=== PATIENT | male | born 1970 | race African-American/Black ===

== ENCOUNTER 2017-08-14 13:29 | Inpatient (IN) | payer MEDICAID ==
[2017-08-14] MEDS ORDERED: ALBUTEROL 3 ML DEYVIAL IH ONE (13:47)
[2017-08-14] MEDS ORDERED: NS 1,000 ML IV ONE ×2 (13:47→16:54)
--- NOTE | 2017-08-14 13:47 | EDPHY ---
H & P Time Seen by Provider: 08/14/17 13:40 HPI/ROS: CHIEF COMPLAINT: Short of breath HISTORY OF PRESENT ILLNESS: 46-year-old man says he is short of breath for the last 24 hr. He says he has some right-sided chest pain which is sharp and worse when he has a cough. Symptoms moderate arrives by EMS. Not associated with fever or chills or sputum production. No leg swelling. No previous history of coronary disease or lung disease and no fever. REVIEW OF SYSTEMS: Eye: no change in vision ENT: no sore throat Cardiac: no chest pain or syncope Pulmonary: HPI Abdomen: no vomiting, diarrhea, abdominal pain Musculoskeletal: no back pain Skin: no rash Neuro: no headache Constitutional: no fever : no urinary symptoms A comprehensive 10 point review of systems is otherwise negative aside from elements mentioned in the history of present illness. 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 Eyes: No scleral icterus. ENT, Mouth: Normal mucous membranes. Respiratory: Occasional expiratory wheezing but speaks in full sentences. Cardiovascular: Regular rate and rhythm. Tachycardic Gastrointestinal: Abdomen is soft and non tender. Neurological: Alert, face symmetric, normal motor and sensory in extremities. Skin: Warm and dry, no rashes. No urticaria. Musculoskeletal: No peripheral edema. No calf tenderness. Psychiatric: Not agitated. Emergency Department course/MDM: Patient is afebrile but noted to be tachycardic at a heart rate 127. EKG, chest x-ray, labs to include D-dimer with coughing up blood, and tachycardia. Albuterol neb. 1421: Sepsis screening with diagnosis of pneumonia, admission for tachycardia and homelessness with severely elevated white blood cell count of over 30,000. D-dimer 3.4, CT angiography ordered. 30 mL/kilos IV fluid bolus ordered as well. 1435: Results and plan discussed with patient, including CT angio discussed and consented. 1500: severe sepsis with lactate 2.3. Ceftriaxone 1 g IV and azithromycin 500 mg IV for presumed community-acquired pneumonia. CT angiography personally reviewed by myself and interpreted does not show pulmonary embolism but large right sided pneumonia; Henry agrees at 1505. Smoking Status: Never smoked Constitutional: Initial Vital Signs Temperature (C) 37.2 C 08/14/17 13:30 Heart Rate 123 H 08/14/17 13:30 Respiratory Rate 20 08/14/17 13:30 Blood Pressure 147/109 H 08/14/17 13:30 O2 Sat (%) 93 08/14/17 13:30 O2 Delivery Mode Nasal Cannula O2 (L/minute) 2 Allergies/Adverse Reactions: No Known Allergies Allergy (Unverified 03/15/16 19:46) Home Medications: Medication Instructions Recorded NK [No Known Home Meds] 03/15/16 Medical Decision Making - Diagnostics EKG Interpretation: 12-lead EKG interpreted by me; official reading is in trace master. My interpretation is sinus tachycardia rate 120 without ischemic changes. Imaging Results: Imaging Impressions Chest X-Ray 08/14/17 13:47 Impression: 1. Right lower lobe consolidation/pneumonia. Chest/Thorax CTA 08/14/17 14:27 Impression: 1. No evidence of thrombopulmonary embolic disease. 2. Dense right lower lobe pneumonia. 3. No evidence of pulmonary abscess or empyema. Findings discussed with Emergency Department physician, Peter Wilson on 08/14/2017 , 15:00. X-ray personally interpreted shows right lower lung pneumonia at 2:21 p.m. Imaging: I viewed and interpreted images myself Differential Diagnosis: Differential diagnosis considered for shortness of breath including but not limited to pulmonary infectious process, COPD, asthma, pulmonary embolus and congestive heart failure. Consult/Admit Bed Type: [place] [id number] Critical Care Time: Critical care time spent by me, Dr. Wilson, exclusively with the care of this patient was 40 minutes, exclusive of PA or MARINE DIESEL TECHNICIAN time and exclusive of separate procedures. The organ system at risk was pulmonary and I ordered IV fluid resuscitation, multiple diagnostics, multiple antibiotics, discussion with hospitalist and supplemental oxygen to stabilize the patient and prevent worsening of the patient's condition. - Data Points Laboratory Results: Laboratory Results 08/14/17 13:30 08/14/17 13:30 08/14/17 08/14/17 08/14/17 13:30 13:30 13:30 WBC 36.42 10^3/uL H 10^3/uL (3.80-9.50) RBC 5.48 10^6/uL 10^6/uL (4.40-6.38) Hgb 16.0 g/dL g/dL (13.7-17.5) Hct 46.9 % % (40.0-51.0) MCV 85.6 fL fL (81.5-99.8) MCH 29.2 pg pg (27.9-34.1) MCHC 34.1 g/dL g/dL (32.4-36.7) RDW 14.2 % % (11.5-15.2) Plt Count 335 10^3/uL 10^3/uL (150-400) MPV 8.8 fL fL (8.7-11.7) Neut % (Auto) Not Reported Lymph % (Auto) Not Reported Atlantic % (Auto) Not Reported Eos % (Auto) Not Reported Baso % (Auto) Not Reported Nucleat RBC Rel Count 0.0 % % (0.0-0.2) Absolute Neuts (auto) Not Reported Absolute Lymphs (auto) Not Reported Absolute Monos (auto) Not Reported Absolute Eos (auto) Not Reported Absolute Basos (auto) Not Reported Absolute Nucleated RBC 0.00 10^3/uL 10^3/uL (0-0.01) Immature Gran % Not Reported Seg Neutrophils % 65 % % Band Neutrophils % 22 % % Lymphocytes % 7 % % Monocytes % 4 % % Metamyelocytes % 3 % % Immature Gran # Not Reported Absolute Seg Neuts 23.67 10^/uL H 10^/uL (1.70-6.50) Absolute Band Neuts 8.01 10^3/uL H 10^3/uL (0.00-0.70) Absolute Lymphocytes 2.55 10^3/uL 10^3/uL (1.00-3.00) Absolute Monocytes 1.46 10^3/uL H 10^3/uL (0.30-0.80) Absolute Metamyelocyte 1.09 10^3/mL H 10^3/mL (0.00-0.00) Dohle Bodies PRESENT H Platelet Estimate ADEQUATE (ADEQ) Smear Review By Cherise ARREDONDO MD D-Dimer 3.43 ug/mLFEU H ug/mLFEU (0.00-0.50) VBG Lactic Acid Sodium 137 mEq/L mEq/L (135-145) Potassium 4.3 mEq/L mEq/L (3.5-5.2) Chloride 95 mEq/L L mEq/L (97-110) Carbon Dioxide 27 mEq/l mEq/l (22-31) Anion Gap 15 mEq/L mEq/L (8-16) BUN 19 mg/dL mg/dL (7-23) Creatinine 1.4 mg/dL H mg/dL (0.7-1.3) Estimated GFR 54 Glucose 82 mg/dL mg/dL (70-100) Calcium 9.4 mg/dL mg/dL (8.5-10.4) 08/14/17 13:06 WBC RBC Hgb Hct MCV MCH MCHC RDW Plt Count MPV Neut % (Auto) Lymph % (Auto) Atlantic % (Auto) Eos % (Auto) Baso % (Auto) Nucleat RBC Rel Count Absolute Neuts (auto) Absolute Lymphs (auto) Absolute Monos (auto) Absolute Eos (auto) Absolute Basos (auto) Absolute Nucleated RBC Immature Gran % Seg Neutrophils % Band Neutrophils % Lymphocytes % Monocytes % Metamyelocytes % Immature Gran # Absolute Seg Neuts Absolute Band Neuts Absolute Lymphocytes Absolute Monocytes Absolute Metamyelocyte Dohle Bodies Platelet Estimate Smear Review By D-Dimer VBG Lactic Acid 2.2 mmol/L H mmol/L (0.7-2.1) Sodium Potassium Chloride Carbon Dioxide Anion Gap BUN Creatinine Estimated GFR Glucose Calcium Medications Given: Sodium Chloride (Ns) 1,000 mls @ 200 mls/hr IV CONT LIT Stop: 02/10/18 14:59 Last Admin: 08/14/17 15:17 Dose: 1,000 mls Discontinued Medications Albuterol (Proventil Neb) 3 ml IH EDNOW ONE Stop: 08/14/17 13:48 Last Admin: 08/14/17 13:54 Dose: 3 ml Sodium Chloride (Ns) 1,000 mls @ 0 mls/hr IV ONCE ONE; Wide Open PRN Reason: Protocol Stop: 08/14/17 13:48 Last Admin: 08/14/17 13:54 Dose: 1,000 mls Azithromycin 500 mg/ Dextrose 255 mls @ 255 mls/hr IV EDNOW ONE PRN Reason: Protocol Stop: 08/14/17 15:27 Last Admin: 08/14/17 16:58 Dose: Not Given Ceftriaxone Sodium 1 gm/ (Sterile Water) 10 mls @ 150 mls/hr IV EDNOW ONE PRN Reason: Protocol Stop: 08/14/17 14:31 Last Admin: 08/14/17 15:43 Dose: Not Given Sodium Chloride (Ns) 3,300 mls @ 6,600 mls/hr 30 ml/kg infuse over 30 min ( 3300 ml) IV EDNOW ONE PRN Reason: Protocol Stop: 08/14/17 14:58 Last Admin: 08/14/17 15:18 Dose: 3,300 mls Azithromycin 500 mg/ Sodium (Chloride) 255 mls @ 255 mls/hr IV EDNOW ONE PRN Reason: Protocol Stop: 08/14/17 16:29 Last Admin: 08/14/17 16:20 Dose: 255 mls Ceftriaxone Sodium/Dextrose (Rocephin 1 Gm (Premix)) 50 mls @ 100 mls/hr IV EDNOW LIT PRN Reason: Protocol Stop: 09/13/17 15:44 Last Admin: 08/14/17 15:41 Dose: 50 mls Departure - Departure Disposition: [facility] Inpatient Acute Clinical Impression: Pneumonia Qualifiers: Pneumonia type: due to unspecified organism Laterality: right Lung location: lower lobe of lung Qualified Code(s): J18.1 - Lobar pneumonia, unspecified organism Condition: Serious
[2017-08-14 13:57] LABS: PLATELET COUNT 335 10^3/uL (150-400)
--- NOTE | 2017-08-14 14:01 | CPEKG ---
Heart Rate: 120 RR Interval: 500 P-R Interval: 148 QRSD Interval: 82 QT Interval: 320 QTC Interval: 453 P Charleston: 16 QRS Charleston: -8 T Wave Charleston: 53 EKG Severity - OTHERWISE NORMAL ECG - EKG Impression: SINUS TACHYCARDIA Electronically Signed By: Peter Wilson 14-Aug-2017 14:05:02
[2017-08-14] MEDS ORDERED: AZITHROMYCIN IV 500 MG in D5W 250 ML IV ONE (14:28)
[2017-08-14] MEDS ORDERED: cefTRIAXone 1 GM in STERILE WATER INJ 10 ML IV ONE (14:28)
[2017-08-14] MEDS ORDERED: NS 3,300 ML IV ONE (14:29)
[2017-08-14] MEDS ORDERED: IOPAMIDOL (ISOVUE 370) 100 ML BTL IV ONE (14:31)
[2017-08-14] MEDS ORDERED: ONDANSETRON DISINTEGRATING 4 MG TAB PO PRN (14:47)
[2017-08-14] MEDS ORDERED: ACETAMINOPHEN 325 MG TAB PO PRN (14:47)
[2017-08-14] MEDS ORDERED: ONDANSETRON 4 MG/2 ML VIAL IVP PRN (14:47)
[2017-08-14] MEDS ORDERED: ALBUTEROL 3 ML DEYVIAL IH PRN (14:47)
[2017-08-14] MEDS ORDERED: AZITHROMYCIN IV 500 MG in NS 250 ML IV ONE ×2 (15:15→15:30)
[2017-08-14] MEDS: NS 1,000 ML IV SCH ×2 (15:17→22:50)
--- NOTE | 2017-08-14 15:38 | PDGENHP ---
History and Physical History and Physical: CC: Shortness of breath and weakness HISTORY: This patient who has history of smoking but no history of lung disease comes into the ER complaining of weakness and shortness of breath. He is homeless. He does not have any known history of asthma or COPD. He does have some cough, some mild nausea without vomiting, some headache and some myalgias. There is no chest pain, no leg pain or swelling, no abdominal pain, no diarrhea, no joint or skin symptoms ROS: A comprehensive 10 system review revealed no other significant findings PAST MEDICAL HISTORY: Very healthy overall FAMILY MEDICAL HISTORY: Does not know his family medical history SOCIAL HISTORY: Homeless No tobacco or alcohol MEDICATIONS: No medicines in the outpatient setting PHYSICAL EXAMINATION: Vital Signs: Significant tachycardia and tachypnea or present, highest temperature so far is 37.5, blood pressure is good Strategic Planning Consultant: Sinus tachycardia Examination: General: alert, oriented, good mentation, looks fairly ill and weak Skin: warm, dry, good color, no rash HEENT: normal Neck: no mass or jvd Resps: relaxed Lungs: clear breath sounds Heart: regular, no murmur Abdomen: soft, nondistended, nontender, +BS, no mass Upper Extremities: normal Lower Extremities: no edema, warm No Bleeding or bruising Neurologic: normal speech/language, 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, no focal weakness IV site: looks normal LABORATORY DATA: Very high white blood cell count 43642 Lactic acidosis is present within anion gap Acute renal failure creatinine 1.4 D-dimer high 3.5 RADIOLOGY STUDIES: Chest x-ray with what appears like a right lower lobe pneumonia on my review of images CT scan of the chest was also done I read in reviewed the images from that in the ER, he has a dense right lower lobe pneumonia but no PE 12 LEAD EKG: ASSESSMENT: -acute community-acquired pneumonia with typical right lower lobe infiltrate -acute early sepsis with marked tachycardia, lactic acidosis, leukocytosis -acute renal failure due to above -nausea headache and respiratory symptoms raising question of flu or other viral illness -homelessness PLANS: Blood cultures have been done Aggressive fluid resuscitation and will need to recheck vitals and lactic acid levels Antibiotics have been started in the ER for pneumonia will continue Await respiratory pathogen panel Follow renal function closely Social work consult I have reviewed the patient's case in detail with Dr. Peter Wilson I have reviewed the patient's past medical records as part of this assessment, including
--- NOTE | 2017-08-14 15:45 | ASMTLACE ---
ESTEVAN Acuity / Level of Answers: Yes Care: Did the patient have an inpatient admission? # of Emergency department Answers: 1-2 visits in the last 6 months Social determinants Answers: Homelessness (street, fdc) Score: 7 Date Signed: 08/14/2017 03:44 PM Electronically Signed By:Kim Houston RN
--- NOTE | 2017-08-14 16:39 | PDMN ---
Medical Necessity Medical necessity: Pt meets IP criteria per MD; est los >2 mn for eval/tx of acute community acquired pneumonia w/RLL infiltrate, acute early sepsis, acute renal failure, nausea & headache; admit for further workup/close monitoring, aggressive IVFs, IV abx; hx homelessness; per H&P & order 08/14/17
[2017-08-14] MEDS: IPRATROPIUM/ALBUTEROL 3 ML DEYVIAL IH SCH ×2 (18:28→22:42)
[2017-08-14] MEDS ORDERED: NS BOLUS 1000 ML (Wide open) IV ONE (20:30)
[2017-08-15] MEDS: NS 1,000 ML IV SCH (04:24)
[2017-08-15 05:11] LABS: PLATELET COUNT 265 10^3/uL (150-400)
[2017-08-15] MEDS: IPRATROPIUM/ALBUTEROL 3 ML DEYVIAL IH SCH ×4 (06:03→21:56)
[2017-08-15] MEDS: ENOXAPARIN 40 MG/0.4 ML SYR SC SCH (08:01)
--- NOTE | 2017-08-15 08:37 | HOSPPROG ---
Hospitalist Progress Note Assessment/Plan: Patient is a 46-year-old male with history smoking. He comes to the emergency room with complaints of weakness and shortness of breath. In addition he is homeless. He is pot positive cough, mild nausea without vomiting, headache and some myalgias. Today is my 1st encounter with the patient. Chart reviewed. * bacteremia, positive strep pneumonia growing in 1 blood culture thus far -on ceftriaxone, azithromycin added -will ask Infectious Disease to get involved * acute community-acquired pneumonia with a right lower lobe infiltrate, also positive for coronavirus -on abx * sepsis due to the above -ongoing leukocytosis, had tachycardia and lactic acidosis * acute renal failure -resolved * homelessness * nicotine dependence -patch, cessation recommended *Plan: appreciate Dr Belle seeing Quinton, he will need another midnight stay due to the above; will get repeat labs in a.m. Subjective: Quinton is tired, has no other complaints. Objective: Vital Signs Temp Pulse Resp BP Pulse Ox 36.4 C 97 20 176/112 H 98 08/15/17 07:42 08/15/17 07:42 08/15/17 07:42 08/15/17 07:42 08/15/17 07:42 Microbiology 08/14/17 14:30 Blood Panel (PCR) - Final Blood Streptococcus Pneumoniae 08/14/17 14:30 Respiratory Panel (PCR) - Final Nasal, Sinus - Swab Coronavirus Hku1 Detected Laboratory Results 08/15/17 04:54 08/15/17 04:54 08/14/17 08/15/17 08/16/17 05:59 05:59 05:59 Intake Total 4835 Output Total 1400 Balance 3435 - Physical Exam Constitutional: no apparent distress, appears nourished Eyes: PERRL Ears, Nose, Mouth, Throat: hearing normal Cardiovascular: regular rate and rhythym Respiratory: no respiratory distress, reduced air movement Gastrointestinal: normoactive bowel sounds Skin: warm, normal color Musculoskeletal: full muscle strength Neurologic: AAOx3 Psychiatric: interacting appropriately, poor insight ICD10 Worksheet Patient Problems: Problems Problem Status Onset Pneumonia Acute
[2017-08-15] MEDS ORDERED: AZITHROMYCIN IV 500 MG in NS 250 ML IV SCH (09:00)
[2017-08-15] MEDS: hydrALAZINE 10 MG TAB PO PRN (12:11)
--- NOTE | 2017-08-15 15:04 | GCON ---
[f rep st] CONSULTATION INPATIENT INFECTIOUS DISEASE CONSULTATION. REFERRING PHYSICIAN: Pooja Pierson NP REASON FOR REFERRAL: Streptococcus pneumoniae, bacteremia and right lower lobe. Pneumonia. HISTORY OF PRESENT ILLNESS: Patient is a 46-year-old, homeless male, who was seen and admitted from the emergency department on 08/14/2017. Patient presented with complaints of shortness of breath and weakness. This has been increasing in problem for the last 24 hours prior to admission. He also no trudy some right-sided chest pain which is worse with deep inspiration and admitted to a cough. The magda roque had a chest CT done which revealed a dense consolidation in the right lower lobe. Blood cultur es initially obtained on 08/14 rapidly grew Streptococcus pneumoniae. The patient also had a respira tory panel PCR which identified coronavirus HKU1. The patient is currently resting comfortably in [facility] bed. He states he still has occasional bouts of coughing. He sometimes coughs some brigh t red blood. Says his fevers and chills have improved. Still has some right-sided chest pain. Curr ently, he is being managed with ceftriaxone and azithromycin. PAST MEDICAL HISTORY: Essentially negative. PAST SURGICAL HISTORY: Hernia repair as a young child. ANTIBIOTICS: 1. Ceftriaxone. 2. Azithromycin. ALLERGIES: Patient has no known medical allergies. SOCIAL HISTORY: Patient is [place]. He moved back out to [place] a number of years ag o. He is homeless although has a network of friends some of whom allow him to stay with them at vari ous points. Occasional alcohol use. Occasional marijuana and methamphetamine use. FAMILY HISTORY: Reviewed, but noncontributory. REVIEW OF SYSTEMS: Other than that detailed above in his present illness, a comprehensive 10-system review is negative. PHYSICAL EXAMINATION: VITAL SIGNS: Temperature maximum is 37.5, Temperature current is 36.9, Heart rate is 106, respiratory rate is 20, blood pressure is 176/116. GENERAL: The patient is a well-form ed, well-nourished, middle-aged male in no acute distress. He is mildly toxic appearing. He is aler t and oriented x3. He is pleasant in demeanor. HEENT: Normocephalic for age. Atraumatic. No scle ral icterus. No oral lesion. No drainage from the nares. Eye Lids and conjunctivae are within hitesh l limits. Pupils are equal and round bilaterally. NECK: Supple. No meningismus. LUNGS: Patient has a clear lung on the left side. Right side with crackles and decreased breath sounds in the right lower lobe. Reasonable effort. HEART: Tachycardic but regular rhythm. No murmur, rub, or gallop n oted. No significant peripheral edema. ABDOMEN: Soft, nontender. No masses. SKIN: Warm and dry to the touch. No rashes or lesions seen. MUSCULOSKELETAL: No muscle tenderness is noted. No joint large effusion or arthritis is seen. NEURO: Cranial nerves 2-12 seem intact. Peripheral sensation seems intact in extremities. LABORATORY DATA: The patient has a CBC dated 08/15/2017 shows a white blood cell count of 28.8, hemo globin of 13.2, hematocrit 39.9, and a platelet count of 265, differential shows 65% mature segmented neutrophils with 28% band forms. Serum chemistries on 08/15 show sodium 138, potassium 3.9, chlorid e 109, bicarbonate of 22, BUN of 13, creatinine 0.9. Total bilirubin is 2.5, unconjugated is 1.6, T is 22, ALT is 37. MICROBIOLOGIC DATA: Patient has blood cultures dated 08/14/2017 which are growing Streptococcus pneu moniae. Respiratory viral panel PCR from 08/14/2017 shows coronavirus HKU1. ASSESSMENT: Respiratory viral infection with coronavirus complicated by secondary bacterial Streptoc occus pneumoniae pneumonia and bacteremia. The patient is being managed with ceftriaxone and azithro mycin. We can probably stop the azithromycin and just use ceftriaxone monotherapy. The patient is b acteremic with gram positives and therefore probably needs a followup blood culture. Will order this for tomorrow. Plan to continue to treat the patient with ceftriaxone and monitor clinical improvemen t. PLAN: 1. Continue ceftriaxone. 2. Stop azithromycin. 3. Follow up blood cultures tomorrow. 4. Follow clinical course. /[id number]/MODL
[2017-08-15] MEDS: cefTRIAXone 2 GM in STERILE WATER INJ 20 ML IV SCH (15:13)
[2017-08-16 05:35] LABS: PLATELET COUNT 311 10^3/uL (150-400)
[2017-08-16] MEDS: IPRATROPIUM/ALBUTEROL 3 ML DEYVIAL IH SCH ×4 (06:03→21:53)
[2017-08-16] MEDS: ENOXAPARIN 40 MG/0.4 ML SYR SC SCH (08:09)
--- NOTE | 2017-08-16 10:22 | PCMIDPN ---
Assessment/Plan: 1. Invasive pneumococcal disease with dense right lower lobe pneumonia and concomitant bacteremia: Sensitivities on the pneumococcus should be back by tomorrow; hopefully he can be discharged on oral quinolone moving forward. He is improving on ceftriaxone. Will continue this for now. Repeat blood cultures are pending. Patient has agreed to an HIV antibody test. He states that his most recent test was 6 months ago while in the [facility], which was negative. He adamantly denies tobacco use. 2. Miscellaneous: Patient adamantly refuses a flu vaccine. Is agreeable to the Prevnar 13 prior to discharge. Subjective: Feeling better every day. Minimal cough. No shaking chills. Objective: Ceftriaxone 2 g IV daily day 2 T-max 37.3 degrees 96% on room air Vital Signs Temp Pulse Resp BP Pulse Ox 36.8 C 91 16 176/100 H 94 08/16/17 08:11 08/16/17 08:11 08/16/17 08:11 08/16/17 08:11 08/16/17 08:11 Microbiology 08/14/17 14:30 Blood Panel (PCR) - Final Blood Streptococcus Pneumoniae Laboratory Results 08/16/17 05:20 08/16/17 05:20 08/15/17 08/16/17 08/17/17 05:59 05:59 05:59 Intake Total 4835 Output Total 1400 1900 Balance 3435 -1900 Repeat blood cultures are pending Previous blood cultures with pneumococcus Respiratory pathogen PCR panel positive for burris virus - Physical Exam General Appearance: alert, no apparent distress EENT: pharynx normal, No thrush Respiratory: other (Crackles right lung base. Otherwise fairly clear.) Cardiac/Chest: regular rate, rhythm Abdomen: non-tender, soft Skin: No rash ICD10 Worksheet Patient Problems: Problems Problem Status Onset Pneumonia Acute
[2017-08-16] MEDS: hydrALAZINE 10 MG TAB PO PRN (11:10)
--- NOTE | 2017-08-16 13:10 | HOSPPROG ---
Hospitalist Progress Note Assessment/Plan: Patient is a 46-year-old male with history smoking. He comes to the emergency room with complaints of weakness and shortness of breath. In addition he is homeless. He has a cough, mild nausea without vomiting, headache and some myalgias. * bacteremia, positive strep pneumonia -on ceftriaxone - * acute community-acquired pneumonia/ dense pna with a right lower lobe infiltrate, also positive for coronavirus -on abx * sepsis due to the above -ongoing leukocytosis * acute renal failure -resolved *htn -uncontrolled -will order scheduled medication but doubtful he will continue with once dc *elevated d dimer -CTA negative for PE * homelessness * nicotine dependence -patch, cessation recommended *Plan: Reviewed his care w Dr Chaudhry, checking for HIV, cont supportive care. Case management has arranged an appointment for him at [facility] this next for f/u. Subjective: Quinton is feeling better today. Appetite is good. Objective: Vital Signs Temp Pulse Resp BP Pulse Ox 36.8 C 88 15 170/108 H 95 08/16/17 11:26 08/16/17 11:51 08/16/17 11:51 08/16/17 11:26 08/16/17 11:51 Microbiology 08/14/17 14:30 Blood Panel (PCR) - Final Blood Streptococcus Pneumoniae Laboratory Results 08/16/17 05:20 08/16/17 05:20 08/15/17 08/16/17 08/17/17 05:59 05:59 05:59 Intake Total 4835 Output Total 1400 1900 Balance 3435 -1900 - Physical Exam Constitutional: no apparent distress Eyes: PERRL Ears, Nose, Mouth, Throat: hearing normal Cardiovascular: regular rate and rhythym Respiratory: no respiratory distress, other (crackles in r base) Gastrointestinal: normoactive bowel sounds Skin: warm Musculoskeletal: full muscle strength Neurologic: AAOx3 Psychiatric: interacting appropriately ICD10 Worksheet Patient Problems: Problems Problem Status Onset Pneumonia Acute
[2017-08-16] MEDS: cefTRIAXone 2 GM in STERILE WATER INJ 20 ML IV SCH (15:12)
[2017-08-17] MEDS: IPRATROPIUM/ALBUTEROL 3 ML DEYVIAL IH SCH ×4 (06:14→21:18)
[2017-08-17] MEDS ORDERED: PNEUMOC 13-VAL CONJ-DIP CRM/PF 0.5 ML SYR IM ONE (08:29)
--- NOTE | 2017-08-17 08:29 | PCMIDPN ---
Assessment/Plan: 1. Invasive pneumococcal disease with dense right lower lobe pneumonia and concomitant bacteremia: Pneumococcus is susceptible to the quinolones; will change him to oral levofloxacin today. Stop date for antibiotics, if blood cultures from August 16 remain sterile is August 30. 2. Miscellaneous: Patient adamantly refuses a flu vaccine. Prevnar 13 today. Objective: Ceftriaxone 2 g IV daily day 3 T-max 37.2 degrees Vital Signs Temp Pulse Resp BP Pulse Ox 36.9 C 88 16 158/93 H 97 08/17/17 07:48 08/17/17 07:48 08/17/17 07:48 08/17/17 07:48 08/17/17 07:48 Microbiology 08/14/17 15:15 Blood Culture - Final Blood Streptococcus Pneumoniae 08/14/17 14:30 Blood Culture - Final Blood Streptococcus Pneumoniae Blood Panel (PCR) - Final Streptococcus Pneumoniae Laboratory Results 08/16/17 05:20 08/16/17 05:20 08/16/17 08/17/17 08/18/17 05:59 05:59 05:59 Intake Total 450 Output Total 1900 700 Balance -1900 -250 Blood cultures August 16 pending Blood cultures August 14 pneumococcus sensitive to the quinolones HIV antibody test pending - Physical Exam General Appearance: alert, no apparent distress EENT: pharynx normal, No thrush Respiratory: other (Poor inspiratory effort, but fairly clear.) Cardiac/Chest: regular rate, rhythm Abdomen: non-tender, soft Skin: No rash ICD10 Worksheet Patient Problems: Problems Problem Status Onset Pneumonia Acute
[2017-08-17] MEDS: ENOXAPARIN 40 MG/0.4 ML SYR SC SCH (08:37)
--- NOTE | 2017-08-17 09:38 | HOSPPROG ---
Hospitalist Progress Note Assessment/Plan: Patient is a 46-year-old male with history smoking. He comes to the emergency room with complaints of weakness and shortness of breath. In addition he is homeless. He has a cough, mild nausea without vomiting, headache and some myalgias. * bacteremia, positive strep pneumonia -on ceftriaxone -2nd set of blood cx shows no growth -dc home on Levaquin till August 30 / will dc tomorrow * acute community-acquired pneumonia/ dense pna with a right lower lobe infiltrate, also positive for coronavirus -on abx * sepsis due to the above -ongoing leukocytosis * acute renal failure -resolved *htn -better today -will order scheduled medication but doubtful he will continue with once dc *elevated d dimer -CTA negative for PE * homelessness * nicotine dependence -patch, cessation recommended *Plan: Reviewed his care w Dr Chaudhry, he can dc tomorrow on Levaquin. May need his prescription filled prior. Subjective: Quinton still is short of breath, but feeling better. Objective: Vital Signs Temp Pulse Resp BP Pulse Ox 36.9 C 88 16 158/93 H 97 08/17/17 07:48 08/17/17 07:48 08/17/17 07:48 08/17/17 07:48 08/17/17 07:48 Microbiology 08/14/17 15:15 Blood Culture - Final Blood Streptococcus Pneumoniae 08/14/17 14:30 Blood Culture - Final Blood Streptococcus Pneumoniae Blood Panel (PCR) - Final Streptococcus Pneumoniae Laboratory Results 08/16/17 05:20 08/16/17 05:20 08/16/17 08/17/17 08/18/17 05:59 05:59 05:59 Intake Total 450 Output Total 1900 700 Balance -1900 -250 - Physical Exam Constitutional: no apparent distress, appears nourished, not in pain Eyes: PERRL Ears, Nose, Mouth, Throat: hearing normal Cardiovascular: regular rate and rhythym Respiratory: no respiratory distress, reduced air movement Skin: warm Musculoskeletal: full muscle strength Neurologic: AAOx3 Psychiatric: interacting appropriately ICD10 Worksheet Patient Problems: Problems Problem Status Onset Pneumonia Acute
--- NOTE | 2017-08-17 15:30 | ASMTCMCOM ---
CM Note CM Note Notes: Met with patient to review dc plan of care. He will require oral antibiotics upon dc, ? MAP . He is aware of follow up appointment set up for [facility] Friday but feels the weather will prevent him form be able to do this. CM can call [facility] in am to look for late week appointment. Likely to dc tomorrow. CM to follow. Date Signed: 08/17/2017 03:30 PM Electronically Signed By:Ramya Child RN
[2017-08-18 03:01] LABS: HIV TYPE 1 AND 2 NEGATIVE (NEGATIVE)
[2017-08-18] MEDS: IPRATROPIUM/ALBUTEROL 3 ML DEYVIAL IH SCH ×2 (05:58→10:15)
[2017-08-18 07:51] VITALS: PULSE 95; RESP 16; TEMP 97.5; O2SAT 91
[2017-08-18] MEDS: ENOXAPARIN 40 MG/0.4 ML SYR SC SCH (09:27)
--- NOTE | 2017-08-18 09:33 | HOSPPROG ---
Hospitalist Progress Note Assessment/Plan: Patient is a 46-year-old male with history smoking. He comes to the emergency room with complaints of weakness and shortness of breath. In addition he is homeless. He has a cough, mild nausea without vomiting, headache and some myalgias. * bacteremia, positive strep pneumonia -on ceftriaxone -2nd set of blood cx shows no growth -dc home on Levaquin till August 30 / will dc tomorrow * acute community-acquired pneumonia/ dense pna with a right lower lobe infiltrate, also positive for coronavirus -on abx * sepsis due to the above -ongoing leukocytosis * acute renal failure -resolved *htn -better today -will order scheduled medication but doubtful he will continue with once dc *elevated d dimer -CTA negative for PE * homelessness * nicotine dependence -patch, cessation recommended *Plan: dc, CM to poss arrange for hotel, will need scripts filled for Levaquin and Norvasc Subjective: Quinton is feeling much better today. Objective: Vital Signs Temp Pulse Resp BP Pulse Ox 36.4 C 95 16 167/113 H 91 L 08/18/17 07:47 08/18/17 07:47 08/18/17 07:47 08/18/17 09:22 08/18/17 07:47 Microbiology 08/14/17 15:15 Blood Culture - Final Blood Streptococcus Pneumoniae 08/14/17 14:30 Blood Culture - Final Blood Streptococcus Pneumoniae Blood Panel (PCR) - Final Streptococcus Pneumoniae Laboratory Results 08/16/17 05:20 08/16/17 05:20 08/17/17 08/18/17 08/19/17 05:59 05:59 05:59 Intake Total 450 1110 Output Total 700 Balance -250 1110 - Physical Exam Constitutional: no apparent distress, appears nourished, not in pain Eyes: PERRL Ears, Nose, Mouth, Throat: hearing normal Cardiovascular: regular rate and rhythym Respiratory: no respiratory distress Gastrointestinal: normoactive bowel sounds Skin: warm Musculoskeletal: full muscle strength Neurologic: AAOx3 Psychiatric: interacting appropriately ICD10 Worksheet Patient Problems: Problems Problem Status Onset Pneumonia Acute
[2017-08-18 10:08] VITALS: BP 184/126
[2017-08-18] MEDS: hydrALAZINE 10 MG TAB PO PRN (10:08)
--- NOTE | 2017-08-18 10:36 | GDS ---
[f rep st] DISCHARGE SUMMARY DISCHARGE DIAGNOSES: 1. Bacteremia noted to have positive strep pneumonia. 2. Acute community-acquired pneumonia, dense pneumonia with a right lower lobe infiltrate. 3. Sepsis due to this. 4. Acute renal failure. 5. Hypertension. 6. Elevated D-dimer. 7. Homelessness. 8. Nicotine dependence. CONSULTATION: Dr. Augustus Belle. HISTORY OF PRESENT ILLNESS: Briefly, the patient is a 46-year-old male with history of smoking, who came to the emergency room with complaints of weakness and shortness of breath. He had a cough and mild nausea with vomiting, headache , and myalgias. Blood cultures were performed. It was noted that he had Streptococcus pneumoniae in his blood stream. In addition, he had a PCR that noted that he had coronavirus. His 2nd set of blood cultures thus far show no growth. The plan is for him to be discharged on Levaquin. He has also been set up for followup care at [facility] since he has no primary care provider. HOSPITAL COURSE: 1. Bacteremia. Second set of blood cultures showed no growth. He will be discharged home on Levaquin till August 30. 2. Acute community-acquired pneumonia with associated coronavirus. Continue antibiotics. 3. Sepsis, resolved. 4. Acute renal failure, resolved. 5. Hypertension. Better. I have given a prescription of Norvasc, explained the risk and harm of not treating his high blood pressure. 6. Elevated D-dimer. CTA was checked which is negative for pulmonary embolus. 7. Homelessness. Case management is arranging to see if we can get him in a hotel for the next few days since it is so cold out. 8. Nicotine dependence. On a patch. Recommend cessation. DISCHARGE CONDITION: Stable. PHYSICAL EXAMINATION: VITAL SIGNS: Blood pressure is 164/110, heart rate is 95 , respiratory rate is 16, O2 sats on room air 91%, temperature is 36.4 Celsius. MEDICATIONS AT DISCHARGE: Please see the EMR. DISCHARGE INSTRUCTIONS: 1. He has an appointment at [facility] for this coming Friday at 10:45 a.m. to see Coni Alcaraz. 2. Take the Levaquin till August 30. 3. To continue treatment for his blood pressure. 4. A repeat chest x-ray in 6 weeks to make sure his resolution of his pneumonia. Greater than 30 minutes discharging and coordinating the patient's care. /[id number]/MODL MTDD
== END 2017-08-18 11:31 | disposition home or self-care (01) | DRG 871 ==
LOC: EDUNIT# → F3E 16:09
PROVIDERS: ADMIT Internal Medicine; ATTEND Internal Medicine
DX: A40.3 Sepsis due to Streptococcus pneumoniae (principal); J18.9 Pneumonia, unspecified organism; N17.9 Acute kidney failure, unspecified; E87.2 Acidosis; B34.2 Coronavirus infection, unspecified; I10 Essential (primary) hypertension; F17.210 Nicotine dependence, cigarettes, uncomplicated; R51 Headache; Z23 Encounter for immunization
CPT/HCPCS: G0009; J0456; J0696; J1650; J7613; Q9967